=== PATIENT | male | born 1995 | race Two or more races ===

== ENCOUNTER 2016-12-09 10:10 | Emergency (ER) | payer OTHER ==
[~2016-12-09] VITALS: Ht 180.3 cm; Wt 116.1 kg
--- NOTE | 2016-12-09 10:12 | NUR ---
AAOX3, BIB [place], LOC WHILE AT WORK, BLOOD SUGAR 40 AND WENT UP TO 50 AFTER GLUCOSE PO. SKIN IS WARM AND DRY. RESP IS EVEN AND UNLABORED WITH NAD NOTED. WE=415UH/DL AT BS. DR MANNING AT BS FOR EVAL. 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
[2016-12-09] MEDS ORDERED: IV SET PRIMARY 1 EA INFUS.SET MC ONE (10:26)
[2016-12-09] MEDS ORDERED: IV NS 0.9% 1,000 ML ONE (10:26)
[2016-12-09] MEDS ORDERED: TDAP [DIPH/PERTUSSIS/TET] 0.5 ML VIAL IM ONE ×2 (10:26→10:30)
[2016-12-09] MEDS ORDERED: regular insulin (10:27)
[2016-12-09] MEDS ORDERED: INSU3INS6 SQ (10:27)
[2016-12-09] MEDS ORDERED: IV NS 0.9% 1,000 ML BAG IV ONE (10:30)
[2016-12-09 10:34] LABS: BASOPHILS % (AUTO) 0.5 % (0.0-2.0); EOSINOPHILS # (AUTO) 0.1 /CMM (0.0-0.7); EOSINOPHILS % (AUTO) 0.6 % (0.0-6.0); HEMATOCRIT 45 % (39-51); HEMOGLOBIN 15.1 g/dL (13.5-17.5); LYMPHOCYTES # (AUTO) 1.5 /CMM (0.8-4.8); LYMPHOCYTES % (AUTO) 18.2 % (20.0-44.0); MEAN CORPUSCULAR HEMOGLOBIN 29 PG (26.0-33.0); MEAN CORPUSCULAR HGB CONC 34 g/dl (31.0-36.0); MEAN CORPUSCULAR VOLUME 85 fL (80-96); MONOCYTES # (AUTO) 0.5 /CMM (0.1-1.30); MONOCYTES % (AUTO) 6.4 % (2.0-12.0); NEUTROPHILS # (AUTO) 6.3 /CMM (1.8-8.9); NEUTROPHILS % (AUTO) 74.3 % (43.0-81.0); PLATELET COUNT (AUTO) 213 /CMM (150-450); RDW COEFFICIENT OF VARIATION 13.1 (11.5-15.0); RED BLOOD CELL COUNT(AUTO) 5.24 MIL/uL (4.5-6.0); WHITE BLOOD COUNT (AUTO) 8.4 K/uL (4.3-11.0)
[2016-12-09 10:41] LABS: CALCIUM, SERUM 8.6 mg/dL (8.5-10.1); CREATININE 1.2 mg/dL (0.6-1.3); POTASSIUM 4.1 mmol/L (3.5-5.1)
[2016-12-09 10:47] LABS: ALBUMIN 3.6 g/dL (3.4-5.0); BILIRUBIN,DIRECT 0.1 mg/dL (0.0-0.2); BILIRUBIN,TOTAL 1.1 mg/dL (0.2-1.0)
--- NOTE | 2016-12-09 10:48 | NUR ---
PATIENT CAME BACK FROM CT, PATIENT APPEARS STABLE AT THIS TIME.
--- NOTE | 2016-12-09 11:30 | NUR ---
Patient is resting comfortably in bed with eyes closed. Easily aroused. VSS
[2016-12-09 12:15] VITALS: BP 17/66
--- NOTE | 2016-12-09 12:15 | NUR ---
IV removed. Catheter intact and site benign. Pressure and 4x4 applied to site. No bleeding noted.Patient discharged to home in stable condition. Written and verbal after care instructions given. Patient verbalizes understanding of instruction.
== END 2016-12-09 12:17 | disposition home or self-care (01) ==
LOC: ER 10:12
DX: R55 Syncope and collapse (principal); E11.649 Type 2 diabetes mellitus with hypoglycemia without coma; S00.411A Abrasion of right ear, initial encounter; S10.91XA Abrasion of unspecified part of neck, initial encounter; S50.812A Abrasion of left forearm, initial encounter; S50.811A Abrasion of right forearm, initial encounter; Z79.4 Long term (current) use of insulin; Z23 Encounter for immunization; X58.XXXA Exposure to other specified factors, initial encounter; Y93.89 Activity, other specified; Y92.89 Other specified places as the place of occurrence of the external cause; Y99.9 Unspecified external cause status
CPT/HCPCS: 36415; 70450; 80048; 80076; 82962 ×2; 83690; 85025; 90471; 90715; 93005; 96360; 99285; A4606; A6402; A6403; J7030; Z7610